=== PATIENT | male | born 1965 | race Hispanic/Latino ===

== ENCOUNTER 2017-03-02 07:55 | Emergency (ER) | payer SELFPAY ==
[2017-03-02 08:17] LABS: #Basophils 0.1 thou/uL (0.0-0.2); #Eosinphils 0.2 thou/uL (0.0-0.7); #Monocytes 0.6 thou/uL (0.11-0.59); #Neutrophils 6.6 thou/uL (1.40-6.50); %Basophils 0.7 % (0.0-1.0); Hematocrit 50.9 % (42.0-52.0); Mean Platelet Volume 8.2 fL (7.4-10.4); Red Blood Cell (RBC) Count 5.66 mill/uL (4.70-6.10); White Blood Cell (WBC) Count 9.4 thou/uL (4.8-10.8)
[2017-03-02] MEDS ORDERED: Ondansetron HCl/PF 4 MG/2 ML Vial ONE (08:18)
[2017-03-02] MEDS ORDERED: Mag-Al Plus 1200 MG/1200 MG/120 MG/30 ML UDCUP ONE (08:18)
[2017-03-02] MEDS ORDERED: Pantoprazole 40 MG VIAL ONE (08:18)
[2017-03-02] MEDS ORDERED: Lidocaine Viscous Sol 2% 15 ml UD Cup ONE (08:18)
[2017-03-02 08:30] LABS: ALT (SGPT) 27 U/L (8-55); AST (SGOT) 21 U/L (5-34); Alkaline Phosphatase 23 U/L (40-150); Anion Gap 15 mmol/L (10-20); BUN (Urea Nitrogen) 13 mg/dL (8.4-25.7); Bilirubin, Total 0.5 mg/dL (0.2-1.2); CK (CPK) 79 U/L (30-200); Calc. Creatinine Clearance 0 mL/min (70-130); Calcium 9.5 mg/dL (7.8-10.44); Carbon Dioxide 23 mmol/L (22-29); Chloride 106 mmol/L (98-107); Estimated GFR-MDRD Greater than 90; Globulin 2.7 g/dL (2.4-3.5); Lipase 304 U/L (8-78)
[2017-03-02 08:32] LABS: Troponin I Less than 0.010 ng/mL (< 0.028)
[2017-03-02] MEDS ORDERED: Morphine Sulfate 2 MG/ML SYRINGE ONE (09:11)
--- NOTE | 2017-03-02 09:55 | CT ---
CT ABDOMEN NONCONTRAST CT PELVIS NONCONTRAST: (urolithiasis protocol) DATE: 03/02/17 TIME: 0834 HOURS HISTORY: 51-year-old male with mid epigastric and right upper quadrant acute abdominal pain with nausea and e mesis. COMPARISON: None. TECHNIQUE: IV injection of iodinated contrast media: none Oral contrast media: none FINDINGS: Other than for urolithiasis, the lack of IV and oral contrast limits the evaluation. There are no renal, ureteral, or bladder calculi. No hydroureteronephrosis. Approximately 1.5 cm cys t in hepatic segment 3 of the left lobe of the liver. No other hepatic abnormality identified. No sm all bowel dilation. No free fluid within the abdominal cavity or pelvic cavity. Within the limitatio ns of noncontrast scan, no significant pathology is identified involving the liver, kidneys, abdomin al aorta, adrenals, pancreas, or spleen. No signs of acute appendicitis. No free fluid or free air w ithin the abdominal cavity or pelvic cavity. There is diffusely low mural attenuation throughout the descending colon, rectum, and at least some of the sigmoid colon, consistent with mural edema. Lung bases are clear. There is no pericolonic fat stranding to indicate any diverticulitis. IMPRESSION: 1. Evidence for a mild left colitis. 2. No urolithiasis or obstructive uropathy. ELSA Snyder POS: [facility]
== END 2017-03-02 09:17 | disposition home or self-care (01) ==
LOC: SCSER 07:55
DX: K85.90 Acute pancreatitis without necrosis or infection, unspecified (principal); K52.9 Noninfective gastroenteritis and colitis, unspecified; K21.9 Gastro-esophageal reflux disease without esophagitis; F17.210 Nicotine dependence, cigarettes, uncomplicated
CPT/HCPCS: 74176; 80053; 82553; 83690; 84484; 85025; 93005; 96361; 96374; 96375; C9113; J2270; J2405